=== PATIENT | female | born 2000 | race Caucasian/White ===

== ENCOUNTER 2020-09-12 15:45 | Emergency (ER) | payer SELFPAY ==
[~2020-09-12] VITALS: Ht 162.6 cm; Wt 81.6 kg
[2020-09-12 17:24] LABS: BASOPHILS # (AUTO) 0.1 (0.0-0.1); BASOPHILS % 0.3 % (0.0-1.0); EOSINOPHILS # (AUTO) 0.2 (0.0-0.4); EOSINOPHILS % 1.5 % (0.0-6.0); HEMATOCRIT 39.6 % (34.2-44.1); LYMPHOCYTES # (AUTO) 3.6 (1.0-3.2); LYMPHOCYTES % 25.4 % (18.0-39.1); MEAN CORPUSCULAR HEMOGLOBIN 27.5 pg (28-32); MEAN CORPUSCULAR HGB CONC 32.8 g/dL (31-35); MEAN CORPUSCULAR VOLUME 83.7 fL (81-99); MONOCYTES # (AUTO) 0.6 (0.2-0.8); MONOCYTES % 4.1 % (4.4-11.3); NEUTROPHILS # (AUTO) 9.7 (2.1-6.9); NEUTROPHILS % 68.1 % (38.7-80.0); PLATELET COUNT 392 x10e3/uL (140-360); RED BLOOD COUNT 4.73 x10e6/uL (3.6-5.1); RED CELL DISTRIBUTION WIDTH 13.2 % (11.7-14.4)
[2020-09-12 17:42] LABS: ALANINE AMINOTRANSFERASE 13 IU/L (0-55); ALBUMIN 3.7 g/dL (3.5-5.0); ALBUMIN/GLOBULIN RATIO 0.9 (0.8-2.0); ALKALINE PHOSPHATASE 81 IU/L (40-150); ANION GAP 14.5 mmol/L (8-16); BLOOD UREA NITROGEN 8 mg/dL (7-26); BUN/CREATININE RATIO 14 (6-25); CALCIUM 9.3 mg/dL (8.4-10.2); CARBON DIOXIDE 23 mmol/L (22-29); CHLORIDE 106 mmol/L (98-107); CREATININE, SERUM 0.59 mg/dL (0.57-1.11); EST GLOMERULAR FILTRATION RATE > 60 ML/MIN (60-); GLUCOSE 100 mg/dL (74-118); POTASSIUM 3.5 mmol/L (3.5-5.1); SODIUM 140 mmol/L (136-145)
[2020-09-12 17:44] LABS: SALICYLATE < 5.0 mg/dL (0-30)
[2020-09-12 18:16] LABS: AMPHETAMINES SCREEN,URINE NEGATIVE (NEGATIVE); BENZODIAZEPINES SCREEN,URINE NEGATIVE (NEGATIVE); CLARITY,URINE SL CLOUDY (CLEAR); COLOR,URINE STRAW (YELLOW); KETONES,URINE NEGATIVE (NEGATIVE); LEUKOCYTE ESTERASE ,URINE NEGATIVE (NEGATIVE); NITRITE,URINE NEGATIVE (NEGATIVE); PHENCYCLIDINE SCREEN,URINE NEGATIVE (NEGATIVE); PROTEIN,URINE DIPSTICK NEGATIVE (NEGATIVE)
[2020-09-12 18:17] LABS: URINE UROBILINOGEN 0.2 mg/dL (0.2 - 1)
[2020-09-12 18:28] LABS: BACTERIA,URINE MANY /HPF; EPITHELIAL CELLS,URINE MODERATE /LPF
[2020-09-12] MEDS ORDERED: ONDANSETRON HCL INJ 2MG/ML 2ML 2 MG/ML VIAL IV STA (19:42)
== END 2020-09-12 21:05 | disposition home or self-care (01) ==
LOC: ER 17:23
DX: R45.851 Suicidal ideations (principal); F41.9 Anxiety disorder, unspecified; F31.9 Bipolar disorder, unspecified; F17.210 Nicotine dependence, cigarettes, uncomplicated
CPT/HCPCS: 36415; 80053; 80307; 80320; 80329; 81001; 84702; 85025; 99283

== ENCOUNTER 2023-12-12 00:15 | Emergency (ER) | payer OTHER ==
[~2023-12-12] VITALS: Ht 162.6 cm; Wt 101.6 kg
[2023-12-12 00:21] VITALS: PULSE 89; RESP 16; TEMP 98.2; O2SAT 100
[2023-12-12] MEDS ORDERED: ONDANSETRON HCL 4 MG ORAL DISINTEGRATING TAB ONE (00:32)
[2023-12-12] MEDS: ONDANSETRON HCL 4 MG ORAL DISINTEGRATING TAB PO ONE (00:34)
[2023-12-12] MEDS ORDERED: DOXYCYCLINE HY100 MG PO (00:34)
[2023-12-12] MEDS ORDERED: ONDANSETRON ODT4 MG SL (00:34)
[2023-12-12] MEDS: IBUPROFEN 600 MG TAB PO STA (00:46)
== END 2023-12-12 00:53 | disposition home or self-care (01) ==
LOC: ER 00:19
DX: H60.13 Cellulitis of external ear, bilateral (principal); F32.A Depression, unspecified; F17.210 Nicotine dependence, cigarettes, uncomplicated
CPT/HCPCS: 99283; Q0162

== ENCOUNTER 2024-05-18 12:36 | Emergency (ER) | payer OTHER ==
[~2024-05-18] VITALS: Ht 162.6 cm; Wt 101.6 kg
[~2024-05-18 12:36] MED LIST: DOXYCYCLINE HY100 MG PO; ONDANSETRON ODT4 MG SL
[2024-05-18 12:46] VITALS: PULSE 89; RESP 15; TEMP 98.5; O2SAT 99
[2024-05-18] MEDS ORDERED: OFLOXACIN5 ML OP (12:54)
== END 2024-05-18 14:02 | disposition home or self-care (01) ==
LOC: ER 12:56
DX: H00.012 Hordeolum externum right lower eyelid (principal); F32.A Depression, unspecified
CPT/HCPCS: 99283

== ENCOUNTER 2024-12-29 11:21 | Emergency (ER) | payer SELFPAY ==
[~2024-12-29] VITALS: Ht 162.6 cm; Wt 104.3 kg
[~2024-12-29 11:21] MED LIST changes: +OFLOXACIN5 ML OP
[2024-12-29] MEDS: SODIUM CHLORIDE 0.9% 1000ML 1,000 ML IV STA (12:50)
[2024-12-29 13:00] LABS: BASOPHILS % 0.3 % (0.0-1.0); EOSINOPHILS % 1.4 % (0.0-6.0); LYMPHOCYTES % 24.0 % (18.0-39.1); MONOCYTES % 5.7 % (4.4-11.3); NEUTROPHILS % 68.3 % (38.7-80.0); RED CELL DISTRIBUTION WIDTH 13.3 % (11.7-14.4)
[2024-12-29 13:22] LABS: CORONAVIRUS COVID-19 AG NEGATIVE (NEGATIVE)
[2024-12-29 13:39] LABS: EST GLOMERULAR FILTRATION RATE 124.0 ML/MIN (>=60)
[2024-12-29 15:00] VITALS: TEMP 98.6
[2024-12-29 15:06] LABS: LEUKOCYTE ESTERASE ,URINE SMALL (NEGATIVE); PREGNANCY TEST, URINE NEGATIVE (NEGATIVE); PROTEIN,URINE DIPSTICK TRACE (NEGATIVE); URINE UROBILINOGEN 2.0 mg/dL (0.2 - 1)
[2024-12-29 15:17] LABS: EPITHELIAL CELLS,URINE FEW /LPF
[2024-12-29] MEDS: METOCLOPRAMIDE HCL 10 MG/2ML VIAL IV STA (17:07)
[2024-12-29] MEDS ORDERED: FIORICET 50-301 EACH PO (17:39)
[2024-12-29 17:45] VITALS: PULSE 56; RESP 16
[2024-12-29 18:35] VITALS: BP 117/84; PULSE 79; RESP 16; O2SAT 100
== END 2024-12-29 18:30 | disposition home or self-care (01) ==
LOC: ER 11:27
DX: R11.2 Nausea with vomiting, unspecified (principal); R10.13 Epigastric pain; R51.9 Headache, unspecified; R19.7 Diarrhea, unspecified; F32.A Depression, unspecified; Z11.52 Encounter for screening for COVID-19
CPT/HCPCS: 36415; 70450; 80053; 81001; 81025; 83690; 85025; 87426; 99284; J2765; J7030